=== PATIENT | female | born 1940 | race Caucasian/White ===

== ENCOUNTER 2021-03-22 10:36 | Emergency (ER) | payer MEDICARE | END 2021-03-22 12:46 | disposition other institution (70) | LOC: ER1 10:36 | DX: I21.19 ST elevation (STEMI) myocardial infarction involving other coronary artery of inferior wall (principal); I95.9 Hypotension, unspecified; I10 Essential (primary) hypertension; E11.9 Type 2 diabetes mellitus without complications | CPT/HCPCS: 31500; 36600; 82803; 85347; 92950; 93005; 93308; 94002; 99285; C1769; C1887; J0171; J0461; J1644; J2250; J2370; J3010; J3246; J7040; J7070; Q9965; U0002 ==